=== PATIENT | female | born 1965 | race Caucasian/White ===

== ENCOUNTER 2019-12-23 08:10 | Emergency (ER) | payer SELFPAY ==
[~2019-12-23] VITALS: Ht 152.4 cm; Wt 79.8 kg
[2019-12-23 08:21] VITALS: Ht 152.4 cm; Wt 79.8 kg
[2019-12-23 12:34] VITALS: BP 127/80
== END 2019-12-23 12:44 | disposition home or self-care (01) ==
LOC: ED 08:10
DX: E86.0 Dehydration (principal); R51 Headache; R03.0 Elevated blood-pressure reading, without diagnosis of hypertension
CPT/HCPCS: J0780; J1885

== ENCOUNTER 2019-12-24 03:01 | Emergency (ER) | payer SELFPAY ==
[~2019-12-24] VITALS: Ht 157.5 cm; Wt 81.3 kg
[2019-12-24 03:17] VITALS: Ht 157.5 cm; Wt 81.3 kg
[2019-12-24 04:21] VITALS: BP 117/81
== END 2019-12-24 04:20 | disposition home or self-care (01) ==
LOC: ED 03:01
DX: R51 Headache (principal); M79.671 Pain in right foot
CPT/HCPCS: J1885